=== PATIENT | female | born 1980 | race Caucasian/White ===

== ENCOUNTER 2019-12-07 23:40 | Emergency (ER) | payer MEDICAID ==
[~2019-12-07] VITALS: Ht 160 cm; Wt 94.3 kg
[2019-12-07 23:41] VITALS: BP 148/94
== END 2019-12-08 00:20 | disposition home or self-care (01) ==
LOC: MED 23:40
DX: S80.861A Insect bite (nonvenomous), right lower leg, initial encounter (principal); F15.10 Other stimulant abuse, uncomplicated; F41.9 Anxiety disorder, unspecified; X58.XXXA Exposure to other specified factors, initial encounter; Y93.89 Activity, other specified; Y92.89 Other specified places as the place of occurrence of the external cause; Y99.8 Other external cause status
CPT/HCPCS: 99282